=== PATIENT | female | born 1930 | race Caucasian/White ===

== ENCOUNTER 2016-08-18 01:18 | Emergency (ER) | payer MEDICARE, OTHER ==
[~2016-08-18] VITALS: Ht 149.9 cm; Wt 59.1 kg
[~2016-08-18 01:18] MED LIST: ASPI81TA2 PO; EZET10T PO; LEVO50TA5 PO; NEX40C PO; OMEG-5 PO; PRV40T PO; SYN75 PO
[2016-08-18 01:20] VITALS: PULSE 64; RESP 18; O2SAT 96
[2016-08-18 01:40] VITALS: BP 146/50
--- NOTE | 2016-08-18 03:17 | ED.REPORT ---
HPI-Trauma Minor / Fall Date of Service Aug 18, 2016 ED Provider: Eder Woodson DO 86yoF with PMH remarkable for PVD and CAD presents with ground level fall. The patient was getting into bed when she lost her balance and fell striking her left forearm on her night stand and twisting her back. The room was dark but she denies hitting her head or losing consciousness. The patient states that she did not lose bowel or bladder function. She admits to pain in her left arm as well as pain in her back. The pain in her back is described as bilateral away from her spine and worse with movement and taking deep breaths. Nursing Notes Stated Complaint: GLF, ARM LAC Chief Complaint: Multiple Trauma/Fall Nursing Notes Reviewed: Yes Allergies: Coded Allergies: No Known Allergies (Unverified Allergy, Unknown, 08/18/16) Scheduled Aspirin-Expunged Drug, Do Not Renew! (Aspirin-Expunged Drug, Do Not Renew!) 81 Mg Tablet 81 MG PO DAILY Esomeprazole-Expunged Drug, Do Not Renew! (Esomeprazole-Expunged Drug, Do Not Renew!) 40 Mg Capsule.dr 40 MG PO BID Take one dose before breakfast and one dose before supper. Ezetimibe (Zetia) 10 Mg Tablet 10 MG PO DAILY Levothyroxine-Expunged Drug, Do Not Renew! (Synthroid-Expunged Drug, Do Not Renew!) 50 Mcg Tablet 50 MCG PO SUN & SAT Levothyroxine-Expunged Drug, Do Not Renew! (Synthroid-Expunged Drug, Do Not Renew!) 75 Mcg Tablet 75 MCG PO MON THRU SUN [place]-3/Dha/Epa/Fish Oil-Expunged Drug, Do No (Fish Oil 1,000 Mg-Expunged Drug, Do Not Renew) 1 Each Capsule 1 EACH PO DAILY Pravastatin-Expunged Drug, Do Not Renew! (Pravachol-Expunged Drug, Do Not Renew! ) 40 Mg Tablet 40 MG PO HS Scheduled PRN Hydrocodone-Acetaminophen 5-325 mg (Hydrocodone-Acetaminophen 5-325 mg) 1 Each Tablet 1 TABLET PO Q4H PRN PRN For Pain General Time Seen by MD: 02:10 Chief Complaint Fall, Extremity pain, Laceration Hx Obtained From: Patient Arrived By: Walk-in Onset Occurred: 1 - 4 hours ago Symptom Duration: Since onset Context: Occurred at: Home injury Location: Back Forearm left Quality: Cramping, Sharp, Throbbing Severity: Current: Moderate Severity: Maximum: Moderate Context: Immunizations Tetanus up to date Recent Healthcare: Recent doctor visit Similar Sx Previous: No Past Medical History Past Medical History PVD with iliofemoral stenting bilaterally Reports: Coronary artery disease, GERD, Hyperlipidemia, Hypertension Past Surgical History PCI x1 in CAD PCI x2 iliofemoral vessels vocal cord polyp removal Reports: Tonsillectomy Smoking History Former Smoker Social History Alcohol Use: 1-3 per week Drug Use: Denies drug use Other Social History: Good social support, Local resident Ambulatory Status Independent Review of Systems Basic Review of Systems Cardiovascular: No palpitations GI: No abdominal pain, No nausea, No vomiting : No dysuria, No frequency Endocrine: No weight gain, No weight loss Allergy / Immune: No allergy Psychiatric: Normal thought content Constitutional: Reports: Weakness - generalized, Denies: Chills, Fever Eyes: Denies: Discharge bilateral, Eye pain bilateral, Visual loss bilateral Ears / Nose / Throat: Denies: Hearing loss bilateral, Sore throat, Throat pain Respiratory: Reports: Pleuritic pain, Denies: Non-productive cough Musculoskeletal: Reports: Back pain, Extremity pain Skin: Reports Bruising Neurologic: Denies: Bladder dysfunction, Bowel dysfunction, Change LOC, Confusion, Dizziness, Headache, Lightheaded, Slurred speech, Spinning sensation , Syncope, Vision change Complete sys rev & neg: except as marked. Physical Exam Initial Vital Signs Vital Signs (First) Date Time Temp Pulse Resp B/P Pulse Ox O2 Delivery O2 Flow Rate FiO2 08/18/16 01:20 36.4 64 18 96 Room Air 08/18/16 01:40 146/50 Initial VS: Reviewed Head / Eyes: Atraumatic, Normocephalic, PERRL ENT: Mucous membranes moist, Conjunctiva normal, No scleral icterus Respiratory: Breath sounds normal, Clear to auscultation, No respiratory distress Cardiovascular: Regular rate & rhythm, Heart sounds normal, Intact distal pulses Abdomen / GI: Soft, Non-tender, No guarding, No rebound, No distention Back: No CVA tenderness Lymphatic: No lymphadenopathy Extremities: Vascular intact, Neuro intact, No swelling Skin: Warm, Dry, No cyanosis Neurologic: Alert, Oriented, Nonfocal Psychiatric: Mood/affect normal, Behavior normal, Normal thought content General/Constitutional: Awake, Alert, No acute distress, Cooperative, Not toxic appearing Neck: Supple, Full range of motion, Non-tender, No midline vertebral tend Head / Eyes: Atraumatic, Normocephalic, PERRL, EOMI, No periorbital redness, No periorbital swelling Respiratory / Chest: Breath sounds NL, Breath sounds = bilat, No respiratory distress, No rales, No rhonchi, No wheezing, No chest tenderness, No chest wall deformity, No crepitus Cardiovascular: Heart rate NL, Regular rhythm, Heart sounds NL, Cap refill not delayed, Peripheral circulation NL Abdomen: Atraumatic, Soft, Non-tender, No guarding, No rebound, No distention Back: No midline vertebral tend Flank / Spine / Paraspinal: Positive: Lumbar paraspinal tend... (Mid), Thorac paraspinal tend... (Mid), Negative: Scapular tenderness L, Scapular tenderness R Upper Extremity / MS: Neurologic intact, Vascular intact, Tendon function NL, No compartment syndrome, No circumferential injury, No edema Clavicle / Shoulder Girdle: Negative: Clavicle deformity L..., Clavicle deformity R..., Clavicle tender L..., Clavicle tender R... Right Shoulder: Negative: Tenderness present... Left Shoulder: Negative: Tenderness present... Right Upper Arm: Negative: Tenderness present... Left Upper Arm: Negative: Tenderness present... Right Elbow: Negative: Tenderness present... Left Elbow: Negative: Tenderness present... Left Forearm: Positive: Ecchymosis present, Tenderness present... 4 skin tears Interpretation & Diagnostics Lab Results Interpretation Result Diagram: 08/18/16 0322 08/18/16 0322 Test 08/18/16 03:22 08/18/16 04:15 White Blood Count 10.6th/mm3 (3.8-10.1) Red Blood Count 4.15mil/mm3 (3.90-5.20) Hemoglobin 14.7g/dL (12.0-15.6) Hematocrit 41.9% (35.0-46.0) Mean Corpuscular Volume 101.0fL (81-100) Mean Corpuscular Hemoglobin 35.4pg (27.0-35.0) Mean Corpuscular Hemoglobin Concent 35.1% (32.0-37.0) Red Cell Distribution Width 12.7% (12.3-15.4) Platelet Count 232bil/L (150-400) Neutrophils (%) (Auto) 76.7% (40-74) Lymphocytes (%) (Auto) 12.1% (14-46) Monocytes (%) (Auto) 5.3% (4-12) Eosinophils (%) (Auto) 5.2% (0-5) Basophils (%) (Auto) 0.2% (0-3) Sodium Level 138mEq/L (134-144) Potassium Level 5.2mEq/L (3.5-5.2) Chloride Level 104mEq/L (97-108) Carbon Dioxide Level 18mmol/L (18-29) Blood Urea Nitrogen 35mg/dL (8-27) Creatinine 1.32mg/dL (0.57-1.00) Estimat Glomerular Filtration Rate 55mL/min (>59) Glucose Level 112mg/dL (60-99) Calcium Level 9.1mg/dL (8.5-10.1) Total Bilirubin 0.2mg/dL (0.0-1.2) Aspartate Amino Transf (AST/SGOT) 32U/L (0-50) Alanine Aminotransferase (ALT/SGPT) 21U/L (0-32) Alkaline Phosphatase 64U/L (25-165) Total Protein 6.5g/dL (6.4-8.4) Albumin 3.9g/dL (3.4-5.0) Hold Uriostegui Top Tube Received (Received) Urine Color Yellow (YELLOW) Urine Appearance Clear (CLEAR,HAZY) Urine pH 5.0 (5.0-8.0) Urine Specific Unity 1.020 (1.003-1.035) Urine Protein Negativemg/dL (NEG,TRACE) Urine Glucose (UA) Negativemg/dL (NEGATIVE) Urine Ketones Negativemg/dL (NEGATIVE) Urine Occult Blood Negative (NEGATIVE) Urine Nitrite Negative (NEGATIVE) Urine Bilirubin Negative (NEGATIVE) Urine Urobilinogen Normalmg/dL (NORMAL) Urine Leukocyte Esterase Negative (NEGATIVE) Urine RBC 0-2/hpf (0-2) Urine WBC 0-5/hpf (0-5) Urine Epithelial Cells Few/hpf (NONE-MOD) Urine Crystals None seen (NONE SEEN) Urine Bacteria Few/hpf (NONE-FEW) Urine Hyaline Casts None/lpf (NONE) Urine Granular Casts None seen (NONE SEEN) Urine Waxy Casts None seen (NONE SEEN) Urine Red Blood Cell Casts None seen (NONE SEEN) Urine White Blood Cell Casts None seen (NONE SEEN) Urine Mucus None seen (None Seen) Urine Trichomonas None seen (NONE SEEN) Urine Yeast None (NONE SEEN) Urinalysis Comment None Urine Culture Reflexed Not indicated Procedures Laceration Management Laceration Management: The patient was prepped with alcohol and then 10mL of 1% lidocaine were instilled in the surrounding subcutaneous tissue. After several minutes the wounds were irrigated and explored for foreign bodies. Given the patients thin skin with 4 skin flaps the decision was to close the wounds with dermibond and steristrips forgoing horizontal matress sutures. The patient tollerated the proceedure well. Time: 02:40 Procedure Performed by: ED resident Consent / Setup / Site Prep: Informed consent provided, Consent from patient Location of Wound: left forearm 4 seperate skin tears the largest approximately 4cm Wound Length: 4 cm Local Anesthesia: Lidocaine 1% Wound Preparation: Normal saline Debridement: Minimal Irrigation: Copious Foreign Body Explore / Removal: Explored for foreign body Undermining / Margins: Flaps aligned Repair Skin: Dermabond (with steristrips) Post-Procedure / Complications: Dressing applied, No complications, Condition improved, Tolerated procedure well, Patient stable Re-Eval/Medical Decision Med Decision/Clinical Course 86yo with ground level fall and 4 skin tear lacerations to her left forearm. The patient's wounds were irrigated and then approximated with dermibond and steristrips. Her thoracic and lumbar spine as well as left forarm were xrayed without sign of fracture or dislocation. CMP showed likely dehydration with BUN:Cr greater than 20:1 and UA to check for UTI as a cause for her fall were also checked. Discharge & Departure Impression: Primary Impression: Skin tear of left forearm without complication Encounter type: initial encounter Qualified Code: S51.802A - Unspecified open wound of left forearm, initial encounter Additional Impression: Dehydration Ruled Out: Vertebral fracture, Fracture of ulna with radius, left, closed Disposition: Home Discharge Condition All VS Reviewed: Yes Condition: Stable Patient Instructions: Laceration (ED) Additional Instructions: During you visit to [facility] Emergency Department we obtained blood work and urine analysis for infectious markers, blood counts, and electrolytes. We obtained xray imaging of your spine and left forearm which appears negative for any acute fractures or dislocations. All your lab values were within normal limits, however you appear mildly dehydrated, and your imaging showed no acute processes or abnormalities. Your vital signs were stable and safe for discharge. We will send you home with - Pain medications - Nausea medications The lacerations on your arm were closed with skin glue and skin tape. You may wash your arm with soap and water twice a day beginning tomorrow 08/18. Please allow the skin tape to fall off naturally, do not pull it off. When taking Vicodin pain medications DO NOT drive, DO NOT drink alcohol, DO NOT take extra acetaminophen (Tylenol). Do not hesitate to call emergency services or your primary care physician if you experience any of the following. - High unrelenting fevers. - Uncontrolled vomiting. - Severe hypertension. - Syncope or loss of consciousness. - Chest pain or severe shortness of breath. Make sure you drink plenty of water, as you appear dehydrated and Vicodin can cause constipation. You may want to take an over the counter stool softener or prune juice. Please call your primary care physician tomorrow and schedule a follow up with in 3-4 days time following your emergency department visit for medication checks and general well-being. Referrals: Liam Dubon MD (PCP) Attending Statement I assumed care from Dr. Woodson at 3 AM, supervising the resident physician. The resident has completed the repair of her skin tears on her arm with skin glue and Steri-Strips. Review of her x-rays with the resident reveals no apparent fracture. Urinalysis is negative for acute infection. Patient is stable for discharge home. Agree with documentation per the above note and as amended. copies to: Liam Dubon MD, Nicholas K DO Aug 18, 2016 03:06 George Canales MD Aug 18, 2016 07:02 Eder Woodson DO Aug 19, 2016 23:17
[2016-08-18] MEDS ORDERED: _Ondansetron ODT 4 mg Tablet PO PRN (03:20)
[2016-08-18] MEDS ORDERED: _HYDROcodone/APAP 5-325 mg Tablet PO PRN (03:20)
[2016-08-18 03:34] LABS: BASOPHILS % (AUTO) 0.2 % (0-3); EOSINOPHILS % (AUTO) 5.2 % (0-5); MONOCYTES % (AUTO) 5.3 % (4-12); Mean Corpuscular Hemoglobin 35.4 pg (27.0-35.0); NEUTROPHILS % (AUTO) 76.7 % (40-74); Platelet Count 232 bil/L (150-400)
[2016-08-18] MEDS ORDERED: HYDR-4003 PO (04:11)
[2016-08-18 04:25] LABS: APPEARANCE,URINE CLEAR (CLEAR,HAZY); COLOR,URINE YELLOW (YELLOW); OCCULT BLOOD,URINE NEGATIVE (NEGATIVE); UROBILINOGEN,URINE NORMAL (NORMAL)
[2016-08-18 04:59] VITALS: BP 160/41; PULSE 54; RESP 20; O2SAT 94
--- NOTE | 2016-08-18 08:58 | DRSVH ---
PROCEDURE: X-RAY LEFT FOREARM, TWO VIEWS ([id number]) INDICATIONS: fall on extremity TECHNIQUE: 2 views of the forearm were acquired. COMPARISON: None. FINDINGS: Bones: No fractures or dislocations. No suspicious bony lesions. Soft tissues: No suspicious soft tissue calcifications or masses. IMPRESSION: No fracture Dictated by: Graham Nails M.D. on 08/18/2016 at 8:56 Approved by: Graham Nails M.D. on 08/18/2016 at 8:56
--- NOTE | 2016-08-18 08:59 | DRSVH ---
PROCEDURE: X-RAY THORACIC SPINE, 2 VIEWS INDICATIONS: back pain after fall TECHNIQUE: 2 views of the thoracic spine were acquired. COMPARISON: None. FINDINGS: Bones: No fractures or dislocations. No suspicious bony lesions. Diffuse endplate spurring and scle rosis throughout the thoracic spine Soft tissues: No paravertebral stripe thickening. IMPRESSION: No fracture Diffuse degenerative changes as above. Dictated by: Graham Nails M.D. on 08/18/2016 at 8:57 Approved by: Graham Nails M.D. on 08/18/2016 at 8:57
--- NOTE | 2016-08-18 09:09 | DRSVH ---
PROCEDURE: X-RAY LUMBAR SPINE, 2 OR 3 VIEW INDICATIONS: back pain after fall TECHNIQUE: 3 views of the lumbar spine were acquired. COMPARISON: [facility], CR, CHEST 2VW, 03/28/2012, 9:04. [facility], CR, [address] 2VW, 04/25/2013, 9:25. [facility], CR, CHEST 2VW, 05/26/2013, 9:55. [facility], CR, XR THORACIC SPINE 2VW, 08/18/2016, 2:49. FINDINGS: Bones: 5 [id number] vertebrae are present. Possible mild loss of vertebral body height at T12 a lthough technically age-indeterminate. There is normal bony alignment. No vertebral body compression fractures. No suspicious bony lesions. Lower lumbar facet disease. Mild disc space narrowing at L1 -L2 and L2-L3. Soft tissues: Overlying bowel gas pattern is normal. No suspicious soft tissue calcifications. Vas cular stents are noted within the common iliac arteries, and numerous aortic atheromatous calcificati ons IMPRESSION: Questionable T12 mild vertebral body height loss, although this could be projectional art ifact and recommend correlation with point tenderness. This finding is technically age-indeterminate. Discussed with Dr. Gonzales in the emergency department on the morning of 08/18/16 0906 hours. Dictated by: Graham Nails M.D. on 08/18/2016 at 8:58 Approved by: Graham Nails M.D. on 08/18/2016 at 9:07
--- NOTE | 2016-08-18 09:14 | PCM.EDPN ---
ED Note Date of Service Aug 18, 2016 Late addendum regarding possible T12 fracture on Xray. Called pt at home and spoke with at 9am. denies midline whitney back pain, states had a prior injury to back and states is concerned this could be a prior injury found on xray. Doesn't feel this is a whitney injury. feels that it is a muscular strain to lateral back areas. Discussed return and follow up precautions. Amauri Gonzales DO Aug 18, 2016 09:14
== END 2016-08-18 04:45 | disposition home or self-care (01) ==
LOC: SED 01:18
DX: S51.802A Unspecified open wound of left forearm, initial encounter (principal); E86.0 Dehydration; M54.9 Dorsalgia, unspecified; W01.190A Fall on same level from slipping, tripping and stumbling with subsequent striking against furniture, initial encounter; Y93.89 Activity, other specified; Y92.003 Bedroom of unspecified non-institutional (private) residence as the place of occurrence of the external cause; Y99.8 Other external cause status; I25.10 Atherosclerotic heart disease of native coronary artery without angina pectoris; K21.9 Gastro-esophageal reflux disease without esophagitis; E78.5 Hyperlipidemia, unspecified; I10 Essential (primary) hypertension; Z87.891 Personal history of nicotine dependence; Z79.82 Long term (current) use of aspirin

== ENCOUNTER 2016-08-28 11:11 | Inpatient (IN) | payer MEDICARE, OTHER ==
[~2016-08-28] VITALS: Ht 149.9 cm; Wt 58.9 kg
[2016-08-28] VITALS (9 sets, daily range): BP systolic 143–220; BP diastolic 61–86; PULSE 42–49; RESP 13–20; O2SAT 95–100
[~2016-08-28 11:11] MED LIST changes: +HYDR-4003 PO
--- NOTE | 2016-08-28 11:37 | ED.REPORT ---
HPI-Back Pain 40 and Over Date of Service Aug 28, 2016 ED Provider: Latasha Fuentes History of Present Illness: seen 10 dyas ago, now with pain in back in mid area. reaching or twisting makes it worse. hurts to sit or stand. not sleeping well. , taking tylenol for the pain, also constipated, BM 2 times in 10 days timbo is primary care. no steps at home. saw Dr. Dubon last week. Fell while she was pulling back the covers on her bed, dizzy and unable to recover and fell. Patient reports she has good balance Nursing Notes Stated Complaint: SEVERE BACK PAIN Chief Complaint: Back Pain or Injury Nursing Notes Reviewed: Yes Allergies: Coded Allergies: minocycline (Verified Allergy, Intermediate, Nausea, 08/28/16) hydrocodone (Verified Adverse Reaction, Intermediate, Nausea, 08/28/16) Scheduled Allopurinol (Allopurinol) 100 Mg Tablet 100 MG PO DAILY Aspirin (Aspirin) 81 Mg Tablet 81 MG PO HS Cholecalciferol (Vitamin D3) (Vitamin D3) 2,000 Unit Tablet 2,000 UNIT PO HS Ezetimibe (Zetia) 10 Mg Tablet 10 MG PO HS Levothyroxine (Synthroid) 75 Mcg Tablet 75 MCG PO ,,,sun,sun Levothyroxine (Synthroid) 50 Mcg Tablet 50 MCG PO Sunday and Sunday Lisinopril (Lisinopril) 10 Mg Tablet 10 MG PO HS Searchlight-3 Fatty Acids/Fish Oil (Searchlight 3 1,000 mg Softgel) 1 Each Capsule 1 EACH PO HS Scheduled PRN Acetaminophen (Acetaminophen) 500 Mg Tablet 500-1,000 MG PO BID PRN PRN For Pain Docusate Sodium (Colace) 100 Mg Capsule 100 MG PO BID PRN PRN For Constipation Doxycycline Monohydrate (Oracea) 40 Mg Cpmp.24hr 40 MG PO DAILY PRN PRN prn Metronidazole (Metronidazole Gel) 1 Applic/0.25 Gm Gel 1 APPLIC TOP BID PRN PRN prn General Time Seen by MD: 11:35 Chief Complaint Back pain Hx Obtained From: Patient Sudden in Onset?: No Caused by: Fall Severity: Current: Pain level 7 out of 10 Severity: Maximum: Pain level 9 out of 10 Past Medical History Past Medical History PVD with iliofemoral stenting bilaterally Reports: Coronary artery disease, GERD, Hyperlipidemia, Hypertension Past Surgical History PCI x1 in CAD PCI x2 iliofemoral vessels vocal cord polyp removal Reports: Tonsillectomy Smoking History Former Smoker Social History Alcohol Use: 1-3 per week Drug Use: Denies drug use Other Social History: Good social support, , Local resident Occupation lives with 08/28/2016 Ambulatory Status Independent Review of Systems Basic Review of Systems Eyes: Vision NL, No discharge Skin: No bruising, No rash, No itch Psychiatric: Normal thought content Physical Exam Initial Vital Signs Vital Signs (First) Date Time Temp Pulse Resp B/P Pulse Ox O2 Delivery O2 Flow Rate FiO2 08/28/16 11:20 36.1 46 15 201/86 97 08/28/16 14:53 Room Air Initial VS: Reviewed, Vital signs abnormal Head / Eyes: Atraumatic, Normocephalic, PERRL ENT: Mucous membranes moist, Conjunctiva normal, No scleral icterus Neck: Supple, Non-tender, Full range of motion Lymphatic: No lymphadenopathy Extremities: Vascular intact, Neuro intact, No swelling, No tenderness Skin: Warm, Dry, No cyanosis Psychiatric: Mood/affect normal, Behavior normal, Normal thought content General/Constitutional: Awake, Alert, No acute distress, Well appearing, Well developed, Well hydrated Diminished Breath Sounds: Positive: Decreased bilateral Cardiovascular: Heart rate NL Heart Rate / Rhythm: Positive: Bradycardia Tenderness/Guarding/Rebound: Positive: Tender LLQ... (Mild) patient does not report bony tenderness but states it is deep inside Neurologic: Oriented X3, Speech NL, No motor deficits Interpretation & Diagnostics Lab Results Interpretation Result Diagram: 08/28/16 1207 08/28/16 1207 Test 08/28/16 12:07 08/28/16 17:17 White Blood Count 8.3th/mm3 (3.8-10.1) Red Blood Count 4.36mil/mm3 (3.90-5.20) Hemoglobin 15.4g/dL (12.0-15.6) Hematocrit 42.1% (35.0-46.0) Mean Corpuscular Volume 96.6fL (81-100) Mean Corpuscular Hemoglobin 35.3pg (27.0-35.0) Mean Corpuscular Hemoglobin Concent 36.6% (32.0-37.0) Red Cell Distribution Width 11.7% (12.3-15.4) Platelet Count 227bil/L (150-400) Neutrophils (%) (Auto) 69.3% (40-74) Lymphocytes (%) (Auto) 19.1% (14-46) Monocytes (%) (Auto) 5.4% (4-12) Eosinophils (%) (Auto) 5.3% (0-5) Basophils (%) (Auto) 0.4% (0-3) Sodium Level 124mEq/L (134-144) Potassium Level 5.0mEq/L (3.5-5.2) Chloride Level 90mEq/L (97-108) Carbon Dioxide Level 21mmol/L (18-29) Blood Urea Nitrogen 17mg/dL (8-27) Creatinine 1.07mg/dL (0.57-1.00) Estimat Glomerular Filtration Rate 70mL/min (>59) Glucose Level 101mg/dL (60-99) Lactic Acid Level 1.1mmol/L (0.4-2.0) Calcium Level 9.7mg/dL (8.5-10.1) Total Bilirubin 0.5mg/dL (0.0-1.2) Aspartate Amino Transf (AST/SGOT) 24U/L (0-50) Alanine Aminotransferase (ALT/SGPT) 15U/L (0-32) Alkaline Phosphatase 74U/L (25-165) Troponin T 0.010ug/L (0.0-0.011) Total Protein 6.2g/dL (6.4-8.4) Albumin 4.0g/dL (3.4-5.0) X-Ray Chest Interpretation Chest Xray Interpretation: INDICATIONS: fall 10 days ago, increase in pain TECHNIQUE: After the administration of intravenous contrast, 5 mm thick sections acquired from the lung apices to the symphysis. 5 mm thick coronal and sagittal reformats were acquired. Additional 7 mm thick coronal maximum intensity projection (MIP) reformats acquired through the lungs. Optional 10-minute delayed imaging may be performed from the kidneys to the bladder. For radiation dose reduction, the following was used: automated exposure control, adjustment of mA and/or kV according to patient size. COMPARISON: Thoracic and lumbar spine 08/18/2016 FINDINGS: Image quality: Excellent. CHEST: Lungs: No pulmonary contusions or lacerations. Upper lobe predominant centrilobular emphysema. No acute airspace opacities. No pneumothorax or hemothorax. Central and peripheral airways appear patent and normal in caliber. Mediastinum: No mediastinal hematomas. Heart size is normal. No pericardial effusion. Thoracic aorta and pulmonary arteries demonstrate normal size and enhancement. No mediastinal or hilar adenopathy. Esophagus is normal in caliber. Small hiatal hernia. Chest wall: No rib fractures. No subcutaneous emphysema. No axillary or supraclavicular adenopathy. Thyroid gland appears normal. ABDOMEN: Solid organs: Liver and spleen are normal in size, liver showing homogeneous decreased attenuation, without lacerations. Gallbladder appears normal. Biliary system is non-dilated. Pancreas enhances normally, without transection. No adrenal hematomas. Both kidneys enhance normally, without hydronephrosis or lacerations. Both kidneys show multiple hypodensities, likely simple cysts. Peritoneum and bowel: No free fluid or air. Unenhanced bowel loops demonstrate normal wall thickness and caliber. Nodes and vessels: No retroperitoneal or mesenteric adenopathy. Aorta shows atheromatous changes and mild dilatation up to 2 cm diameter distally, to the iliac graft in place. Inferior vena cava is normal in size and enhancement. Miscellaneous: No ventral hernias. PELVIS: Genitourinary: Bladder wall thickness is normal. Miscellaneous: No inguinal hernias or adenopathy. Bones: Pelvic ring and hip joints appear intact. A compression fracture involving T12 extends through the posterior endplate with slight retropulsion. The posterior elements otherwise appear intact. No additional thoracic or lumbar fractures. Moderate kyphosis upper thoracic spine.. IMPRESSION: 1. Compression fracture T12, subacute with mild retropulsion and approximately 30% volume loss superiorly. 2. No soft tissue posttraumatic changes identified. 3. Small hiatal hernia. 4. Hepatic steatosis. 5. Multiple bilateral renal cystic changes. 6. Atherosclerosis with aortoiliac graft 7. Bilateral upper lobe emphysema. Dictated by: Dru Antoine M.D. on 08/28/2016 at 14:02 Approved by: Dru Antoine M.D. on 08/28/2016 at 14:20 Re-Eval/Medical Decision Med Decision/Clinical Course 86 year old female presents for evualation of increasing pain s/p fall10 days ago. This is her 3 health care related visit in 10 days. Present with HR of 42. patient states this isnew, does report 8 years ago she had HR in the 50's . Patient has been faily immobile since the injury. Blood pressure normalized after being here. Consult with Cardiology, recommend no hydrocodone as that could decrease HR. Patient states she has not had any for 5 days. lab indicates hyponatermia at 124, new finding. 1 liter of fluid does not change heart rate, increases blood pressure. Admit for monitoring Discharge & Departure Impression: Primary Impression: Constipation Constipation type: unspecified constipation type Qualified Code: K59.00 - Constipation, unspecified Additional Impressions: Hyponatremia Bradycardia Low back pain Chronicity: acute Back pain laterality: bilateral Disposition: ADMITTED TO HOSPITAL Patient Instructions: Acute Low Back Pain (ED), Bradycardia (GEN), Fall Prevention for Older Adults (GEN), High Fiber Diet (ED), Hyponatremia (ED) Referrals: Liam Dubon MD (PCP) EDSupervising Provider for APC: James Hernandez MD copies to: Liam Dubon MD, Sue ARNP Aug 28, 2016 11:37
[2016-08-28] MEDS ORDERED: LORazepam 0.5 mg Tablet PO ONE (11:50)
[2016-08-28 12:15] LABS: BASOPHILS % (AUTO) 0.4 % (0-3); EOSINOPHILS % (AUTO) 5.3 % (0-5); MONOCYTES % (AUTO) 5.4 % (4-12); Mean Corpuscular Hemoglobin 35.3 pg (27.0-35.0); Mean Corpuscular Volume 96.6 fL (81-100); NEUTROPHILS % (AUTO) 69.3 % (40-74); Platelet Count 227 bil/L (150-400)
[2016-08-28 12:39] LABS: TROPONIN T 0.01 ug/L (0.0-0.011)
--- NOTE | 2016-08-28 14:21 | DRSVH ---
PROCEDURE: CT CHEST, ABDOMEN AND PELVIS WITH CONTRAST ([id number]) INDICATIONS: fall 10 days ago, increase in pain TECHNIQUE: After the administration of intravenous contrast, 5 mm thick sections acquired from the lung apices t o the symphysis. 5 mm thick coronal and sagittal reformats were acquired. Additional 7 mm thick cor onal maximum intensity projection (MIP) reformats acquired through the lungs. Optional 10-minute del ayed imaging may be performed from the kidneys to the bladder. For radiation dose reduction, the fol lowing was used: automated exposure control, adjustment of mA and/or kV according to patient size. COMPARISON: Thoracic and lumbar spine 08/18/2016 FINDINGS: Image quality: Excellent. CHEST: Lungs: No pulmonary contusions or lacerations. Upper lobe predominant centrilobular emphysema. No a cute airspace opacities. No pneumothorax or hemothorax. Central and peripheral airways appear paten t and normal in caliber. Mediastinum: No mediastinal hematomas. Heart size is normal. No pericardial effusion. Thoracic ao rta and pulmonary arteries demonstrate normal size and enhancement. No mediastinal or hilar adenopat hy. Esophagus is normal in caliber. Small hiatal hernia. Chest wall: No rib fractures. No subcutaneous emphysema. No axillary or supraclavicular adenopathy . Thyroid gland appears normal. ABDOMEN: Solid organs: Liver and spleen are normal in size, liver showing homogeneous decreased attenuation, without lacerations. Gallbladder appears normal. Biliary system is non-dilated. Pancreas enhances normally, without transection. No adrenal hematomas. Both kidneys enhance normally, without hydrone phrosis or lacerations. Both kidneys show multiple hypodensities, likely simple cysts. Peritoneum and bowel: No free fluid or air. Unenhanced bowel loops demonstrate normal wall thicknes s and caliber. Nodes and vessels: No retroperitoneal or mesenteric adenopathy. Aorta shows atheromatous changes an d mild dilatation up to 2 cm diameter distally, to the iliac graft in place. Inferior vena cava is no rmal in size and enhancement. Miscellaneous: No ventral hernias. PELVIS: Genitourinary: Bladder wall thickness is normal. Miscellaneous: No inguinal hernias or adenopathy. Bones: Pelvic ring and hip joints appear intact. A compression fracture involving T12 extends throug h the posterior endplate with slight retropulsion. The posterior elements otherwise appear intact. No additional thoracic or lumbar fractures. Moderate kyphosis upper thoracic spine.. IMPRESSION: 1. Compression fracture T12, subacute with mild retropulsion and approximately 30% volume loss superi yazan. 2. No soft tissue posttraumatic changes identified. 3. Small hiatal hernia. 4. Hepatic steatosis. 5. Multiple bilateral renal cystic changes. 6. Atherosclerosis with aortoiliac graft 7. Bilateral upper lobe emphysema. Dictated by: Dru Antoine M.D. on 08/28/2016 at 14:02 Approved by: Dru Antoine M.D. on 08/28/2016 at 14:20
[2016-08-28] MEDS ORDERED: 0.9% Sodium Chloride 1,000 ML IV ONE (15:50)
[2016-08-28] MEDS ORDERED: Ondansetron 2 mg/mL 2 mL Inj IVPUSH PRN ×2 (17:20→18:20)
[2016-08-28] MEDS ORDERED: Alum-Mag Hydrox-Simeth 30 mL Suspension PO PRN ×2 (17:20→18:20)
--- NOTE | 2016-08-28 18:12 | NUR ---
ADMIT Admitted an 86/F into room 3031 following report from GEAR SHAVER SET UP OPERATOR, Fani Chung. Pt A&Ox4, pleasant and cooperative with cares. She states lower back px has been constant. She arrived via w/c and was able to amb to bed with SBA, tolerated activity well. Pt on RA. Scattered bruising noted to UE/LE's as well as 3 skin tears to L FA which have steri strips in place. Pt placed on TELE: per lunchroom monitor SB 45-55. Manual BP obtained upon admit: 208/74, HR 45. MD mcneill. Pt introduced to room/call light and bed controls as well as staff. Bed alarm in place for safety.
[2016-08-28] MEDS ORDERED: Polyethylene Glycol (PEG) 17 Gm Powder PO PRN (18:20)
--- NOTE | 2016-08-28 19:01 | PCM.HPMED ---
Subjective Date of Service Aug 28, 2016 Primary Provider: Admitting Physician: Mode Montero MD Primary Care Physician: Liam Dubon MD Attending Physician: Mode Montero MD Chief Complaint: Back pain, weakness. History of Present Illness: Patient is an 86 F history of CAD, GERD, HTN, HLD who presents with back pain, weakness, and falls. She states she had a fall 10 days ago and twisted her back. She has had 6-9/10 lower back pain she describes as aching dull pain. She denies sharp shooting pain or bowel/bladder incontinence. She states she has been severely weak and her back pain has not improved and she returned to the ED today. She also reports constipation, with 2 BMs in 10 days. She denies headaches but reports chronic blurry vision due to ocular muscle weakness, worked up by ophthalmology. Lumbar spine X-ray 08/18/16 showed questionable T12 mild vertebral body height loss, although this could be projectional artifact and recommend correlation with point tenderness. Thoracic spine X-ray showed diffuse degenerative changes. In the ED, HR was 44, BP was 208/74. Na was 124, Cr was 1.07, which appears to be around her baseline. Review of Systems: Comprehensive review of systems conducted and was negative except for the pertinent positives listed above. Allergies Coded Allergies: minocycline (Verified Allergy, Intermediate, Nausea, 08/28/16) hydrocodone (Verified Adverse Reaction, Intermediate, Nausea, 08/28/16) Home Medications Medication Directions allopurinol 100 mg tablet take 1 tablet by oral route 2 times every day Aspirin Low Dose 81 mg tablet,delayed release take 1 tablet by oral route every day hydrocodone 10 mg-acetaminophen 325 mg tablet Unsure of dosage 4 tablets daily lisinopril 10 mg tablet take 1 tablet (10MG) by oral route every day for high blood pressure. metronidazole 0.75 % topical gel as needed OMEGA-3 FATTY ACIDS/FISH OIL 2000mg 1 tablet daily Oracea 40 mg capsule,immediate - delay release as needed Synthroid 75 mcg tablet TAKE ONE TABLET BY MOUTH 5 TIMES A WEEK FOR THYROID SYNTHROID TAB 0.05MG TAKE 1 TABLET 2 TIMES A WEEK FOR THYROID Vitamin D 2,000 Unit Capsule 1 tablet by mouth daily ZETIA TAB 10MG TAKE 1 TABLET DAILY FOR HIGH CHOLESTEROL PMH PVD with iliofemoral stenting bilaterally Coronary artery disease GERD Hyperlipidemia Hypertension Surgical History PCI x1 in CAD PCI x2 iliofemoral vessels vocal cord polyp removal Tonsillectomy Family History Myocardial infarction - mother, grandmother, grandfather Social History Hx Alcohol Use: No Hx Substance Use: No Hx Tobacco Use: Yes (quit 2001) Smoking Status: Former Smoker (50 pack year history) Exam Vital Signs Vital Sign - Last Date Time Temp Pulse Resp B/P Pulse Ox O2 Delivery O2 Flow Rate FiO2 08/28/16 18:09 36.5 44 16 208/74 97 Room Air Exam General: Alert, Oriented X3, Cooperative, No Acute Distress Head: Normocephalic, atraumatic. External ears normal. Eyes: PERRLA, EOMI. Anicteric sclerae. Mouth: Mouth Normal, Mucous Membranes Moist/[place] Neck: Neck supple with full range of motion. Chest & Lungs: Clear to auscultation bilaterally with no crackles, wheezes, or rhonchi. Cardiovascular: Regular Rate/Rhythm, Normal S1, Normal S2, No Murmurs/Rubs/ Gallops Abdomen: Non-tender, Non-distended, No masses, Normoactive bowel tones, Soft Musculoskeletal: Somewhat limited ROM with lower back motion due to pain. No point tenderness to vertebrae or tenderness to palpation to lower back. Extremities: No cyanosis/clubbing/edema bilaterally Neurological: Grossly Neurologically Intact, Normal Speech Lab and Diagnostics Result Diagram: 08/28/16 1207 08/28/16 1207 Assessment & Plan 1. Acute hypertensive urgency. Present on admission. - BP 208/74. Med Rec is incomplete but she does not appear to be on antihypertensives at home. She is bradycardic so will be cautious in choice of antihypertensive medication - Amlodipine 5 mg. - Continue home Lisinopril - Consider hydralazine overnight if her BP does not improve. - Avoid further B-blockers due to bradycardia. 2. Acute low back pain. Present on admission. - Secondary to fall and back strain 10 days ago. Lumbar/thoracic imaging was negative. No radicular signs. Consider CT/MRI if sx do not improve or worsen. - Tylenol 975 mg q6h PRN, max dose 3000 mg daily 3. Hyponatremia - Na 124 on admission - NS @ 80 ml/hr - Monitor BMP 4. Possible CKD - Pt Cr baseline appears to be around 1 - 1.1. Cr 1.07 today. - Continue to monitor BMP 5. Other Chronic Conditions PVD with iliofemoral stenting bilaterally Coronary artery disease GERD Hyperlipidemia Hypertension VTE Prophylaxis: Sub-Q Heparin (Unfractionated) Resuscitation Status: CPR: Attempt Resuscitation Ramirez Soto Aug 28, 2016 18:24
[2016-08-28] MEDS ORDERED: DOCU-41 PO (19:33)
[2016-08-28] MEDS ORDERED: LEVO50TA83 PO (19:33)
[2016-08-28] MEDS ORDERED: ZYL100 PO (19:33)
[2016-08-28] MEDS ORDERED: LISI10TA PO (19:33)
[2016-08-28] MEDS ORDERED: DOXY40CP PO (19:33)
[2016-08-28] MEDS ORDERED: EZET10TA PO (19:33)
[2016-08-28] MEDS ORDERED: ACET-171 PO (19:33)
[2016-08-28] MEDS ORDERED: ASPI-973 PO (19:33)
[2016-08-28] MEDS ORDERED: METR45GE TOP (19:33)
[2016-08-28] MEDS ORDERED: CHOL200025 PO (19:33)
[2016-08-28] MEDS ORDERED: OMEG1CAP56 PO (19:33)
[2016-08-28] MEDS ORDERED: SYN75 PO (19:33)
[2016-08-28] MEDS: 0.9% Sodium Chloride 1,000 ML IV SCH (19:42)
[2016-08-28 20:51] LABS: APPEARANCE,URINE CLEAR (CLEAR,HAZY); COLOR,URINE STRAW (YELLOW); PH,URINE 5.5 (5.0-8.0)
[2016-08-28 20:52] LABS: OCCULT BLOOD,URINE TRACE (NEGATIVE); UROBILINOGEN,URINE NORMAL (NORMAL)
[2016-08-29] VITALS (10 sets, daily range): BP systolic 111–207; BP diastolic 54–73; PULSE 44–62; RESP 16–20; O2SAT 94–100
[2016-08-29] MEDS: Heparin 5,000 Unit/mL Inj SUBQ SCH ×4 (00:36→23:04)
--- NOTE | 2016-08-29 06:11 | NUR ---
Shift note Patient A and O x3. Ambulating to bathroom SBA. Calls appropriately and makes her needs known. Patient is 94% on RA, she denies SOB. Patient slept most of the night. Complains of lower back pain that she describes as a "continual achey" pain. After evening medications were given, her pain decreased from a 6 to a 3 on a scale from 0-10. Call light is in pt reach and bed is in lowest position and bed alarm is activated.
[2016-08-29 07:18] LABS: BASOPHILS % (AUTO) 0.6 % (0-3); EOSINOPHILS % (AUTO) 6.4 % (0-5); MONOCYTES % (AUTO) 7.6 % (4-12); Mean Corpuscular Hemoglobin 35.2 pg (27.0-35.0); Mean Corpuscular Volume 97.8 fL (81-100); NEUTROPHILS % (AUTO) 61.2 % (40-74); Platelet Count 223 bil/L (150-400)
[2016-08-29] MEDS: 0.9% Sodium Chloride 1,000 ML IV SCH (07:49)
[2016-08-29 08:11] LABS: Magnesium 1.9 mg/dL (1.6-2.6)
[2016-08-29] MEDS ORDERED: Lidocaine Topical 5% Patch TOPICAL SCH (11:05)
[2016-08-29] MEDS: Lidocaine Topical 5% Patch TOPICAL PRN (12:18)
--- NOTE | 2016-08-29 14:45 | NUR ---
BACK PAIN P-Patient c/o lower back pain from previous fall. I-Tylenol 975mg given for 01/08 pain at 0900. New order for Lidocaine patch received fro and patch applied at 1215. E-Patient now rates pain 10/09, will continue Tylenol Q6, and Lidocaine patch Q12. Monitor results. Addendum: 08/29/16 at 1604 by AFSANEH MOLINA RN LABS- TSH 21, Na 131 NEURO- LOC X4 CVS-BP was 209/64 before am BP meds (10 Lisinopril + 5 Norvasc) BP post meds 130/65 then 110/50. HR 40-50 per telemetry patient asymptomatic. PLUM-RA 94% GI- Heart healthy - Bathroom SBA SKIN Bruising left arm with steri strips three sites PAIN- See above note IV- NS 50 PLAN-PT evaluation, monitor BP and control pain.
--- NOTE | 2016-08-29 14:50 | PCM.PNMED ---
Subjective Date of Service Aug 29, 2016 Subjective denies any new issues/complaints. says overall feels much better. Exam Vital Signs Vital Sign - Last Date Time Temp Pulse Resp B/P Pulse Ox O2 Delivery O2 Flow Rate FiO2 08/29/16 12:51 36.6 52 16 111/54 94 Room Air Intake and Output 08/28/16 08/28/16 08/29/16 Cumulative From/Thru 15:00 23:00 07:00 08/28/16 11:20 - 08/29/16 06:52 Intake Total 1218 ml 1218 ml Output Total 1225 ml 1225 ml Balance -7 ml -7 ml Intake Oral 400 ml 400 ml IV Total 818 ml 818 ml Output Urine Total 1225 ml 1225 ml # Voids 1 1 General: Alert, Oriented X3, Cooperative, No Acute Distress Head: Normal Eyes: Scleral Anicteric Nose: Mucous Membr Moist/[place] Mouth: Mucous Membr Moist/[place] Neck: Supple Chest & Lungs: Chest Wall Normal, Clear to auscultation & percussion Cardiovascular: Regular Rate/Rhythm Pulses: NL carotid, radial, femoral, DP, PT Abdomen: Non-tender, Non-distended, Normoactive bowel tones, Soft Extremities: No cyanosis/clubbing/edma bilat Neurological: Grossly Neurologically Intact, Normal Speech IVs and Medications Medications Reviewed: Medications were reviewed in detail Lab and Diagnostics Result Diagram: 08/29/1670208/29/16 07 Assessment & Plan 86 F history of CAD, GERD, HTN, HLD who presents with back pain, weakness, and falls. She states she had a fall 10 days ago and twisted her back. She has had 6 -9/10 lower back pain she describes as aching dull pain. She denies sharp shooting pain or bowel/bladder incontinence. She states she has been severely weak and her back pain has not improved and she returned to the ED today. She also reports constipation, with 2 BMs in 10 days. # Acute hypertensive urgency. Present on admission. Resolved - BP 208/74. - Stop Amlodipine started on admission - Continue home Lisinopril - Avoid further B-blockers due to bradycardia. # Subacute low back pain. Present on admission. - CT chest/abd 08/28: "Compression fracture T12, subacute with mild retropulsion and approximately 30% volume loss superiorly." - Lidoderm patch prn - c/w supportive care # Acute dehydration with associated acute hyponatremia. present on admission. - improving with IVF - c/w gentle IVF and f/u # Elevated TSH and normal T4 - ? subclinical hypothyroidism vs acute elevation of TSH due to presenting stress - further f/u and repeat labs by PCP as outpatient. # Acute kidney injury. present on admission. - Resolved with IVF. f/u # PVD with iliofemoral stenting bilaterally. stable # Coronary artery disease. presumed stable - c/w home meds # Chronic asymptomatic bradycardia. stable - f/u on tele Dispo: home in 1-2 days pending improved symptoms, stable BP, and resolved hyponatremia VTE Prophylaxis: Sub-Q Heparin (Unfractionated) VTE Mechanical Devices: Intermittant Pneumatic CD Resuscitation Status: CPR: Attempt Resuscitation Time spent 30 min Nils Del Toro Aug 29, 2016 14:50
--- NOTE | 2016-08-29 15:29 | NUR ---
Social Work Note - Initial Assessment: D/A: The Pt is an 86 y/o female that was admitted for hyponatremia, bradycardia as per EMR. The Pt's PCP is MD Liam Dubon. Her primary insurance is Medicare with [employer] as her supplement, no LTC or VA benefits. Her readmission risk is 2. EMR reviewed, SW met with the Pt to explain role and discuss discharge planning. The Pt lives independently in [place] with her in a one story home with no stairs, no DME used. Her is her DPOA and identified support person. Pt reports that her PCP has a copy of her Advanced Directive, paperwork requested for [facility]. The Pt continues to drive and reports that her will provide transportation home. The Pt denies a HH/SNF and is not a caregiver. No SW needs identified at this time, SW to follow if needs arise. P: Pt likely to discharge home when medically stable with to provide POV transportation. Advanced Directive paperwork requested. No SW needs identified at this time, SW to follow if needs arise. ITZEL Hernández Conveyor Tender Damaris Wheatley LMSW Addendum: 08/29/16 at 1536 by KEVIN SCHMIDT Amended: Links added.
[2016-08-29] MEDS: hydrALAZINE 20 mg/mL Inj IV PRN (20:42)
--- NOTE | 2016-08-29 21:44 | NUR ---
HTN During routine VS, pts BP 183/69. Prn hydralazine 5mg IV administered. When BP reassessed post medication administration, BP 169/73. Continue to monitor. Addendum: 08/30/16 at 0042 by JUSTICE VICTORIA RN At approx 0030, VS obtained. Pt laying in bed. BP 192/68. notified regarding BP and that prn hydralazine not due at this time. aware, no new orders at this time. Continue to recheck BP, give prn IV hydralazine if needed when next dose is available. Pt aware of plan.
[2016-08-30] VITALS (8 sets, daily range): BP systolic 165–192; BP diastolic 60–79; PULSE 53–64; RESP 16–18; O2SAT 95–99
[2016-08-30] MEDS: 0.9% Sodium Chloride 1,000 ML IV SCH (00:07)
[2016-08-30] MEDS: Heparin 5,000 Unit/mL Inj SUBQ SCH ×2 (08:34→15:59)
[2016-08-30] MEDS: Lidocaine Topical 5% Patch TOPICAL PRN (08:35)
[2016-08-30] MEDS: hydrALAZINE 20 mg/mL Inj IV PRN ×2 (11:15→18:58)
--- NOTE | 2016-08-30 12:15 | NUR ---
BP at 1110 PT in to work with pt and noted a BP of 205/100, primary RN notified and PRN hydralazine administered. BP rechecked by PT and SBP noted to be 184. BP now rechecked on both arms, L arm = 190/94 R arm= 183/59 this was take within min of pt sitting down from ambulating to the bathroom. Manual BP checked on L arm, = 160/62 note sent to MD. Will continue to monitor.
--- NOTE | 2016-08-30 15:15 | PCM.PNMED ---
Subjective Date of Service Aug 30, 2016 Subjective denies any new issues/complaints. says overall feels much better. Exam Vital Signs Vital Sign - Last Date Time Temp Pulse Resp B/P Pulse Ox O2 Delivery O2 Flow Rate FiO2 08/30/16 14:32 36.1 59 18 184/60 97 Room Air Intake and Output 08/29/16 08/29/16 08/30/16 Cumulative From/Thru 15:00 23:00 07:00 08/28/16 11:20 - 08/30/16 06:31 Intake Total 1886 ml 1133 ml 4237 ml Output Total 800 ml 1050 ml 3075 ml Balance 1086 ml 83 ml 1162 ml Intake Oral 930 ml 650 ml 1980 ml IV Total 956 ml 483 ml 2257 ml Output Urine Total 800 ml 1050 ml 3075 ml # Voids 1 # Bowel Movements 0 0 Exam General: Alert, Oriented X3, Cooperative, No Acute Distress Head: Normal Eyes: Scleral Anicteric Nose: Mucous Membr Moist/[place] Mouth: Mucous Membr Moist/[place] Neck: Supple Chest & Lungs: Chest Wall Normal, Clear to auscultation bilat Cardiovascular: Regular Rate/Rhythm Pulses: NL carotid, radial, femoral, DP, PT Abdomen: Non-tender, Non-distended, Normoactive bowel tones, Soft Extremities: No cyanosis/clubbing/edema bilat Neurological: Grossly Neurologically Intact, Normal Speech IVs and Medications Medications Reviewed: Medications were reviewed in detail Lab and Diagnostics Result Diagram: 08/29/16 0703 08/30/16 0633 Assessment & Plan 86 F history of CAD, GERD, HTN, HLD who presents with back pain, weakness, and falls. She states she had a fall 10 days ago and twisted her back. She has had 6 -9/10 lower back pain she describes as aching dull pain. She denies sharp shooting pain or bowel/bladder incontinence. She states she has been severely weak and her back pain has not improved and she returned to the ED today. She also reports constipation, with 2 BMs in 10 days. # Acute hypertensive urgency. Present on admission. - Hypertension still poorly controlled - start low dose Amlodipine - Continue home Lisinopril and consider increasing to bid - Avoid further B-blockers due to bradycardia. # Subacute low back pain. Present on admission. - CT chest/abd 08/28: "Compression fracture T12, subacute with mild retropulsion and approximately 30% volume loss superiorly." - Lidoderm patch prn - c/w supportive care # Acute dehydration with associated acute hyponatremia. present on admission. - Resolved with IVF - stop IVF # Elevated TSH and normal T4 - ? subclinical hypothyroidism vs acute elevation of TSH due to presenting stress - further f/u and repeat labs by PCP as outpatient. # Acute kidney injury. present on admission. - Resolved with IVF. f/u # PVD with iliofemoral stenting bilaterally. stable # Coronary artery disease. presumed stable - c/w home meds # Chronic asymptomatic bradycardia. stable - f/u on tele Dispo: home in 1-2 days pending stable BP VTE Prophylaxis: Sub-Q Heparin (Unfractionated) VTE Mechanical Devices: Intermittant Pneumatic CD Resuscitation Status: CPR: Attempt Resuscitation Time spent 35 min Nils Del Toro Aug 30, 2016 15:15
[2016-08-30] MEDS: Sodium Chloride LOK Flush 10 mL Syringe IVFLUSH SCH (16:11)
--- NOTE | 2016-08-30 17:06 | NUR ---
Elevated BP Elevated Systolic BP. Rylan gamboad doctor. Amlodipine given as ordered. Recheck BP 180/68 manual and 182/67 automatic on left arm. New orders for Lisinoprill. Will give Lisinoprill as ordered. Will recheck BP.
--- NOTE | 2016-08-30 17:52 | NUR ---
patient does not use any CPAP. Addendum: 08/30/16 at 1753 by STEPHAN VILLAGOMEZ RN Amended: Links added.
--- NOTE | 2016-08-30 19:40 | NUR ---
Systolic BP PRN Hydralazine given as ordered for Elevated Systolic. Report r/t unstable BP given to oncoming night nurse.
[2016-08-31] VITALS (7 sets, daily range): BP systolic 170–181; BP diastolic 69–77; PULSE 52–70; RESP 16–18; O2SAT 95–97
[2016-08-31] MEDS: Sodium Chloride LOK Flush 10 mL Syringe IVFLUSH SCH ×2 (01:08→08:40)
[2016-08-31] MEDS: Heparin 5,000 Unit/mL Inj SUBQ SCH ×2 (01:08→08:41)
[2016-08-31] MEDS: hydrALAZINE 20 mg/mL Inj IV PRN (05:07)
--- NOTE | 2016-08-31 06:39 | NUR ---
PT ACTIVITY Pt has slept for brief moments during shift. Pt up to BR w/ min SBA. Pt tolerates activity well. Steady on feet. Pt c/o intermittent back pain, relieved by PO tylenol, repositioning and KPAD. Pt also states prn lidocaine patches have been effective for pain management. Continue to monitor. Call light in reach. Intentional rounding.
[2016-08-31] MEDS ORDERED: AMLO5TAB2 PO (11:34)
[2016-08-31] MEDS ORDERED: LISI-610 PO (11:34)
--- NOTE | 2016-08-31 11:39 | PCM.DIMED ---
Discharge Instructions Date of Service Aug 31, 2016 Dates of Hospitalization Aug 28, 2016 at 17:35 Discharge Diagnosis Discharge Diagnosis # Acute hypertensive urgency. Present on admission. Improved - Hypertension still persisting but improved # Subacute low back pain. Present on admission. Improved. - CT chest/abd 08/28: "Compression fracture T12, subacute with mild retropulsion and approximately 30% volume loss superiorly." # Acute dehydration with associated acute hyponatremia. present on admission. Resolved # Elevated TSH and normal T4 - possible subclinical hypothyroidism vs acute elevation of TSH due to presenting stress - Recommend further followup and repeat labs by primary care provider as outpatient. # Acute kidney injury. present on admission. - Resolved with IV fluid. # Chronic peripheral vascular disease with iliofemoral stenting bilaterally. stable # Coronary artery disease. presumed stable # Chronic asymptomatic bradycardia. stable # Acute on chronic gout. Diet Low fat, Low Sodium, Heart Healthy Activity Outpatient Physical Therapy Call your provider Fever or Chills, Shortness of breath, Bleeding, Chest pain, Weakness (unilateral ) Patient Instructions Seek immediate medical attention if any new or worsening signs or symptoms occur. Follow-up plan 1. Followup with primary care provider (Dr. Dubon) on Sunday09/05/16 at 11:45 AM 2. Followup with cardiology (Dr. Case) as previously planned or in 1-2 weeks as needed. Follow-up Provider: Liam Dubon MD Follow-up with PCP in: Other ( Sunday09/05/16 at 11:45 AM) Provider: Apurva Case MD, Masoud Aug 31, 2016 11:39
[2016-08-31] MEDS ORDERED: LIDO700A6 TOPICAL (11:41)
--- NOTE | 2016-08-31 13:14 | NUR ---
Social Work: Discharge Data: Pt is on day 3 of hospitalization. EMR reviewed. D/C orders are in. PT worked with pt, walking over 400 ft and recommending home with no PT needs. No d/c planning needs anticipated at this time. POT FEEDER will continue to follow if needs arise. Assessment: Pt who is independent at baseline. Plan: Pt will d/c home via POV today. No d/c planning needs anticipated at this time. POT FEEDER will continue to follow if needs arise. ITZEL Jenkins
--- NOTE | 2016-08-31 13:33 | NUR ---
STUDENT NURSE NOTE Pt discharged. Primary RN discussed discharge plan/new medications/health information sheets with patient. She verbalized understanding of all instructions. Patient left with all personal belongs, and I escorted patient down to lobby in a wheelchair. Patient and her left in their private vehicle.
--- NOTE | 2016-08-31 16:30 | PCM.DC.MED ---
Discharge Summary Date of Service Aug 31, 2016 Dates of Hospitalization Date of Hospital Admission Aug 28, 2016 at 17:35 Date of Discharge: Aug 31, 2016 Providers: Admitting Physician: Mode Montero MD Primary Care Physician: Liam Dubon MD Attending Physician: Mode Montero MD Diagnosis at Time of Discharge Diagnosis at Time of Discharge # Acute hypertensive urgency. Present on admission. Improved - Hypertension still persisting but improved # Subacute low back pain. Present on admission. Improved. - CT chest/abd 08/28: "Compression fracture T12, subacute with mild retropulsion and approximately 30% volume loss superiorly." # Acute dehydration with associated acute hyponatremia. present on admission. Resolved # Elevated TSH and normal T4 - possible subclinical hypothyroidism vs acute elevation of TSH due to presenting stress - Recommend further followup and repeat labs by primary care provider as outpatient. # Acute kidney injury. present on admission. - Resolved with IV fluid. # Chronic peripheral vascular disease with iliofemoral stenting bilaterally. stable # Coronary artery disease. presumed stable # Chronic asymptomatic bradycardia. stable # Acute on chronic gout. Procedures XRay, CTs & MRIs Date of Service: 08/28/16 1147 PROCEDURE: CT CHEST, ABDOMEN AND PELVIS WITH CONTRAST ([id number]) IMPRESSION: 1. Compression fracture T12, subacute with mild retropulsion and approximately 30% volume loss superiorly. 2. No soft tissue posttraumatic changes identified. 3. Small hiatal hernia. 4. Hepatic steatosis. 5. Multiple bilateral renal cystic changes. 6. Atherosclerosis with aortoiliac graft 7. Bilateral upper lobe emphysema. Dictated by: Dru Antoine M.D. on 08/28/2016 at 14:02 Approved by: Dru Antoine M.D. on 08/28/2016 at 14:20 Brief History As noted in H&P by Dr. Soto: Patient is an 86 F history of CAD, GERD, HTN, HLD who presents with back pain, weakness, and falls. She states she had a fall 10 days ago and twisted her back. She has had 6-9/10 lower back pain she describes as aching dull pain. She denies sharp shooting pain or bowel/bladder incontinence. She states she has been severely weak and her back pain has not improved and she returned to the ED today. She also reports constipation, with 2 BMs in 10 days. She denies headaches but reports chronic blurry vision due to ocular muscle weakness, worked up by ophthalmology. Lumbar spine X-ray 08/18/16 showed questionable T12 mild vertebral body height loss, although this could be projectional artifact and recommend correlation with point tenderness. Thoracic spine X-ray showed diffuse degenerative changes. In the ED, HR was 44, BP was 208/74. Na was 124, Cr was 1.07, which appears to be around her baseline. Hospital Course # Acute hypertensive urgency. Present on admission. Resolved - Hypertension persisting but improved - started low dose Amlodipine 2.5mg daily during this hospital - increased home Lisinopril from 10mg daily to bid - Avoid further B-blockers due to bradycardia. # Subacute low back pain. Present on admission. - CT chest/abd 08/28: "Compression fracture T12, subacute with mild retropulsion and approximately 30% volume loss superiorly." - Improved with Lidoderm patch prn # Acute dehydration with associated acute hyponatremia. present on admission. - Resolved with IVF # Elevated TSH and normal T4 - ? subclinical hypothyroidism vs acute elevation of TSH due to presenting stress - further f/u and repeat labs by PCP as outpatient. # Acute kidney injury. present on admission. - Resolved with IVF. # PVD with iliofemoral stenting bilaterally. stable # Coronary artery disease. presumed stable - c/w home meds # Chronic asymptomatic bradycardia. stable by day of d/c lungs CTA bilat. abdomen soft, nt, nd, +bs. Exam Vital Signs (Last) Date Time Temp Pulse Resp B/P Pulse Ox O2 Delivery O2 Flow Rate FiO2 08/31/16 12:28 36.7 70 16 97 Room Air Test 08/28/16 12:07 08/28/16 20:28 08/29/16 07:03 08/30/16 06:33 Lactic Acid Level 1.1mmol/L (0.4-2.0) Troponin T 0.010ug/L (0.0-0.011) Urine Color Straw (YELLOW) Urine Appearance Clear (CLEAR,HAZY) Urine pH 5.5 (5.0-8.0) Urine Specific [place] 1.005 (1.003-1.035) Urine Protein Negativemg/dL (NEG,TRACE) Urine Glucose (UA) Negativemg/dL (NEGATIVE) Urine Ketones Negativemg/dL (NEGATIVE) Urine Occult Blood Trace (NEGATIVE) Urine Nitrite Negative (NEGATIVE) Urine Bilirubin Negative (NEGATIVE) Urine Urobilinogen Normalmg/dL (NORMAL) Urine Leukocyte Esterase Negative (NEGATIVE) Urine RBC 0-2/hpf (0-2) Urine WBC 0-5/hpf (0-5) Urine Epithelial Cells None/hpf (NONE-MOD) Urine Crystals None seen (NONE SEEN) Urine Bacteria None/hpf (NONE-FEW) Urine Hyaline Casts None/lpf (NONE) Urine Granular Casts None seen (NONE SEEN) Urine Waxy Casts None seen (NONE SEEN) Urine Red Blood Cell Casts None seen (NONE SEEN) Urine White Blood Cell Casts None seen (NONE SEEN) Urine Mucus None seen (None Seen) Urine Trichomonas None seen (NONE SEEN) Urine Yeast None (NONE SEEN) Urinalysis Comment None Urine Culture Reflexed Not indicated White Blood Count 6.8th/mm3 (3.8-10.1) Red Blood Count 4.18mil/mm3 (3.90-5.20) Hemoglobin 14.7g/dL (12.0-15.6) Hematocrit 40.9% (35.0-46.0) Mean Corpuscular Volume 97.8fL (81-100) Mean Corpuscular Hemoglobin 35.2pg (27.0-35.0) Mean Corpuscular Hemoglobin Concent 35.9% (32.0-37.0) Red Cell Distribution Width 12.0% (12.3-15.4) Platelet Count 223bil/L (150-400) Neutrophils (%) (Auto) 61.2% (40-74) Lymphocytes (%) (Auto) 23.9% (14-46) Monocytes (%) (Auto) 7.6% (4-12) Eosinophils (%) (Auto) 6.4% (0-5) Basophils (%) (Auto) 0.6% (0-3) Magnesium Level 1.9mg/dL (1.6-2.6) Total Bilirubin 0.5mg/dL (0.0-1.2) Aspartate Amino Transf (AST/SGOT) 20U/L (0-50) Alanine Aminotransferase (ALT/SGPT) 14U/L (0-32) Alkaline Phosphatase 69U/L (25-165) Total Protein 5.6g/dL (6.4-8.4) Albumin 3.5g/dL (3.4-5.0) Thyroid Stimulating Hormone (TSH) 21.820uIU/mL (0.450-4.500) Free Thyroxine 0.95ng/dL (0.82-1.77) Sodium Level 134mEq/L (134-144) Potassium Level 4.4mEq/L (3.5-5.2) Chloride Level 102mEq/L (97-108) Carbon Dioxide Level 21mmol/L (18-29) Blood Urea Nitrogen 14mg/dL (8-27) Creatinine 0.85mg/dL (0.57-1.00) Estimat Glomerular Filtration Rate 91mL/min (>59) Glucose Level 100mg/dL (60-99) Calcium Level 8.8mg/dL (8.5-10.1) Discharge Medications Discharge Medications Allopurinol (Allopurinol) 100 Mg Tablet 100 MG PO DAILY (Reported) Amlodipine (Amlodipine) 5 Mg Tablet 2.5 MG PO DAILY Prescribed by: JUANITA MINAYA MD Aspirin (Aspirin) 81 Mg Tablet 81 MG PO HS (Reported) Cholecalciferol (Vitamin D3) (Vitamin D3) 2,000 Unit Tablet 2,000 UNIT PO HS ( Reported) Ezetimibe (Zetia) 10 Mg Tablet 10 MG PO HS (Reported) Levothyroxine (Synthroid) 75 Mcg Tablet 75 MCG PO ,,,sun,sun (Reported) Levothyroxine (Synthroid) 50 Mcg Tablet 50 MCG PO Sunday and Sunday (Reported ) Lisinopril (Zestril) 10 Mg Tablet 10 MG PO BID Prescribed by: JUANITA MINAYA MD [place]-3 Fatty Acids/Fish Oil ([place] 3 1,000 mg Softgel) 1 Each Capsule 1 EACH PO HS (Reported) As needed Acetaminophen (Acetaminophen) 500 Mg Tablet 500-1,000 MG PO BID PRN PRN For Pain (Reported) Docusate Sodium (Colace) 100 Mg Capsule 100 MG PO BID PRN PRN For Constipation ( Reported) Doxycycline Monohydrate (Oracea) 40 Mg Cpmp.24hr 40 MG PO DAILY PRN PRN prn ( Reported) Lidocaine (Lidoderm) 700 Mg Adh..patch 1 PATCH TOPICAL DAILY PRN PRN For Pain Prescribed by: JUANITA MINAYA MD Metronidazole (Metronidazole Gel) 1 Applic/0.25 Gm Gel 1 APPLIC TOP BID PRN PRN prn (Reported) Followup Plan Disposition: Home Follow-up plan 1. Followup with primary care provider (Dr. Dubon) on Sunday09/05/16 at 11:45 AM 2. Followup with cardiology (Dr. Case) as previously planned or in 1-2 weeks as needed. Discharge Diet: Low fat, Low Sodium, Heart Healthy Discharge Activity: Outpatient Physical Therapy Patient Instructions Seek immediate medical attention if any new or worsening signs or symptoms occur. Follow-up Provider: Liam Dubon MD Follow-up with PCP in: Other Provider: Apurva Case MD Time spent 35 min copies to: Liam Dubon MD; Apurva Case MD, Mas[place] Aug 31, 2016 16:30
== END 2016-08-31 13:22 | disposition home or self-care (01) | DRG 305 ==
LOC: SED 11:11 → MPC 17:35
PROVIDERS: ADMIT Family Medicine; ATTEND Family Medicine
DX: I16.0 Hypertensive urgency (principal); E87.1 Hypo-osmolality and hyponatremia; N17.9 Acute kidney failure, unspecified; E86.0 Dehydration; Z79.82 Long term (current) use of aspirin; Z87.891 Personal history of nicotine dependence; Z91.81 History of falling; N18.9 Chronic kidney disease, unspecified; I25.10 Atherosclerotic heart disease of native coronary artery without angina pectoris; E03.8 Other specified hypothyroidism; S22.089D Unspecified fracture of T11-T12 vertebra, subsequent encounter for fracture with routine healing